=== PATIENT | female | born 1990 | race Caucasian/White ===

== ENCOUNTER 2017-09-03 00:20 | Inpatient (IN) | payer OTHER, SELFPAY ==
[2017-09-03 01:25] LABS: Hematocrit 33.2 % (37-47); Mean Corp Hgb Conc 33.1 g/gl (32-36); Mean Corpuscular Hgb 30.6 pg (27.0-32.0); Mean Corpuscular Volume 92.2 fL (81-99); Mean Platelet Vol. 10.7 fl (6.2-12.0); Platelet Count 282 K/mm3 (150-450); RBC Distribution Width CV 12.3 % (11.6-14.6); RBC Distribution Width SD 40.3 fl (35.1-43.9); White Blood Count 13.9 K/mm3 (4.4-11.0)
[2017-09-03 01:31] LABS: Scan Indicated on CBC? Y/N NO
[2017-09-03 01:32] VITALS: BMI 35.2
[2017-09-03] MEDS: Betamethasone/Betamethasone 30 MG/5 ML Vial 12 MG IM (01:56)
[2017-09-03 02:27] LABS: Group B Strep DNA By PCR POSITIVE (Negative); Probe Check PASS
[2017-09-03] MEDS: Lactated Ringers 1,000 ML 50 ML IV ×4 (06:00→13:38)
[2017-09-03] MEDS: fentaNYL-bupivacaine (epidural) 100 ML BAG EPIDURAL ×3 (07:00→15:50)
[2017-09-03] MEDS: Levothyroxine 50 MCG Tablet PO (09:19)
[2017-09-03] MEDS: Oxytocin 30 units/NS 500 ml 30 UNITS/500 ML IV.SOLN IV (09:30)
[2017-09-03] MEDS: Cefazolin 1 GM/50 ML BAG IV (11:55)
[2017-09-03] MEDS: Oxytocin 30 units/NS 500 ml 30 UNITS/500 ML IV.SOLN 334 UNITS IV (17:57)
--- NOTE | 2017-09-03 18:12 | PCM.HP.OB ---
History Date of Admission: 09/03/17 Final DINORA: 09/29/17 Final DINORA Source: US <20 weeks Gestational age: 36 Weeks and 2 Days History of this : This is a 27 year-old, 1 para 0 at 36-2/7 weeks gestation with EDC of 09/29/2014 confirmed by early ultrasound presents complaining of spontaneous rupture of membranes. She had rupture membranes with clear fluid at approximately 11:15 PM on 09/02/2017. Her contractions started after this. She had no gross vaginal bleeding. Her has been uncomplicated to date. She conceived this using clomiphene citrate. Her past medical history significant for Almaz's thyroiditis and she had folliculitis in the groin area treated with Keflex earlier in the . Allergies amoxicillin [From Augmentin] Allergy (Verified 09/03/17 01:25) Other clavulanic acid [From Augmentin] Allergy (Verified 09/03/17 01:25) Other Sulfa (Sulfonamide Antibiotics) Allergy (Verified 09/03/17 01:25) Hives Home Medications: Home Medications Calcium Carbonate [Tums] 750 mg PO DAILY PRN 09/03/17 Levothyroxine [Synthroid] 50 mcg PO DAILY 09/03/17 Vits [Prenatabs FA] 1 tablet PO DAILY 09/03/17 Smoking Status: Never smoker Alcohol: None Number of Fetus(es): 1 History Past Pregnancies: Past Pregnancies Delivery Date Name GA/Weeks Outcome Route Weight Infant Gender Labor Length Anesthesia Delivery Location Provider FOB Expected Delivery Method: Spontaneous Vaginal Review of Systems Constitutional: Denies: Anorexia, Chills, Fever Eyes: Denies: Blurred vision Cardiovascular: Reports: Edema. 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 Estimated weight is less than 4500 g pelvis is clinically adequate to expect vaginal delivery. Has received group B strep prophylaxis. Will augment labor with Pitocin. May have epidural or nitrous oxide or Nubain as needed for pain control.
--- NOTE | 2017-09-03 18:15 | HP.PCM_ITS ---
History Date of Admission: 09/03/17 Final DINORA: 09/29/17 Final DINORA Source: US <20 weeks Gestational age: 36 Weeks and 2 Days History of this : This is a 27 year-old, 1 para 0 at 36-2/7 weeks gestation with EDC of confirmed by early ultrasound presents complaining of spontaneous rupture of membranes. She had rupture membranes with clear fluid at approximately 11:15 PM on 09/02/2017. Her contractions started after this. She had no gross vaginal bleeding. Her has been uncomplicated to date. She conceived this using clomiphene citrate. Her past medical history significant for Almaz's thyroiditis and she had folliculitis in the groin area treated with Keflex earlier in the . Allergies amoxicillin [From Augmentin] Allergy (Verified 09/03/17 01:25) Other clavulanic acid [From Augmentin] Allergy (Verified 09/03/17 01:25) Other Sulfa (Sulfonamide Antibiotics) Allergy (Verified 09/03/17 01:25) Hives Home Medications: Home Medications Calcium Carbonate [Tums] 750 mg PO DAILY PRN 09/03/17 Levothyroxine [Synthroid] 50 mcg PO DAILY 09/03/17 Vits [Prenatabs FA] 1 tablet PO DAILY 09/03/17 Smoking Status: Never smoker Alcohol: None Number of Fetus(es): 1 History Past Pregnancies: Past Pregnancies Delivery Date Name GA/Weeks Outcome Route Weight Infant Gender Labor Length Anesthesia Delivery Location Provider FOB Expected Delivery Method: Spontaneous Vaginal Review of Systems Constitutional: Denies: Anorexia, Chills, Fever Eyes: Denies: Blurred vision Cardiovascular: Reports: Edema. 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 Estimated weight is less than 4500 g pelvis is clinically adequate to expect vaginal delivery. Has received group B strep prophylaxis. Will augment labor with Pitocin. May have epidural or nitrous oxide or Nubain as needed for pain control.
--- NOTE | 2017-09-03 18:15 | PCM.OB.VAG ---
Vaginal Delivery Maternal Presentation: Active Labor, Spontaneous Rupture of Membranes Amniotic Membrane Rupture Type: Spontaneous at home Amniotic Fluid Description: Clear Final DINORA: 09/29/17 Final DINORA Source: US <20 weeks Gestational age: 36 Weeks and 2 Days Date of Procedure: 09/03/17 Pre-Operative Diagnosis: labor Post-Operative Diagnosis: same Surgery/ Procedure Performed: Spontaneous Vaginal Delivery Type of Anesthesia: Epidural Description of Procedure: A vigorous male was delivered BIANKA over very small first-degree perineal laceration.. The remainder the infant was delivered with maternal pushing and gentle traction only in less than 15 seconds. The Pitocin infusion was initiated for active management of the third stage. The cord was clamped and cut after 1 minute. The infant was attended to by the waiting nursing staff. The placenta was delivered spontaneously and intact. The cervix and vagina were intact. The small superficial 1 cm abrasion was not repaired. Sponge and needle counts were correct. A vaginal sweep was completed by me. Presentation: BIANKA Placental Delivery Description: Spontaneous Placenta Disposition: [facility] Cord Vessel Description: 3 Vessels Cord Entanglement: None Drain: Cheatham to straight drain Estimated Blood Loss: 300cc A gender: Male (1 minute): 8 (5 minute): 9 Laceration: 1st degree Medications given after delivery: IV Pitocin Complications: None
[2017-09-03] MEDS: Oxytocin 30 units/NS 500 ml 30 UNITS/500 ML IV.SOLN 167 UNITS IV (18:30)
[2017-09-03 20:00] VITALS: BP 118/65; PULSE 85; RESP 18; TEMP 37
[2017-09-03] MEDS: Nystatin Ointment 1 APPLIC TOPICAL (21:58)
[2017-09-04] VITALS: BP 114/65; PULSE 80; RESP 18; TEMP 37.1
[2017-09-04] MEDS: Naproxen 250 MG Tablet PO ×2 (02:38→13:31)
[2017-09-04 04:30] VITALS: BP 103/60; PULSE 79; RESP 16; TEMP 37.1
[2017-09-04 08:50] VITALS: BP 116/71; PULSE 77; RESP 16; TEMP 36.9; O2SAT 97
--- NOTE | 2017-09-04 09:03 | PCM.PN.OB ---
Subjective: Pain minimal/. Average lochia - Physical Exam General: Alert, Cooperative, No apparent distress Vital Signs Temp Pulse Resp BP 98.7 F 79 16 103/60 09/04/17 04:30 09/04/17 04:30 09/04/17 04:30 09/04/17 04:30 Weight: 96.162 kg Body Mass Index (BMI) 35.2 Intake and Output for Last 24 Hours 09/02/17 09/03/17 09/04/17 23:59 23:59 23:59 Intake Total 4278 / 4278 Output Total 5000 / 5000 450 / 450 Balance -722 / -722 -450 / -450 Medical Necessity - Tobacco Use Smoking Status: Never smoker Assessment/Plan PPD#1 s/p 36 week delivery working on likely d/c home tomorrow
[2017-09-04] MEDS: Nystatin Ointment 1 APPLIC TOPICAL ×2 (11:02→23:00)
[2017-09-04] MEDS: Senna/Docusate Sodium 1 Tablet PO (11:02)
[2017-09-04 11:55] VITALS: BP 112/60; PULSE 90; RESP 18; TEMP 36.7; O2SAT 98
[2017-09-04 15:55] VITALS: BP 118/70; PULSE 95; RESP 16; TEMP 37
[2017-09-04 20:40] VITALS: BP 122/80; PULSE 90; RESP 18; TEMP 37
[2017-09-05 02:40] VITALS: BP 118/66; PULSE 68; RESP 18; TEMP 36.5
[2017-09-05] MEDS: Levothyroxine 50 MCG Tablet PO (06:00)
[2017-09-05 08:00] VITALS: BP 114/64; PULSE 82; RESP 18; TEMP 36.7
[2017-09-05] MEDS: Senna/Docusate Sodium 1 Tablet PO (08:32)
[2017-09-05] MEDS: Nystatin Ointment 1 APPLIC TOPICAL (08:41)
--- NOTE | 2017-09-05 10:52 | PCM.PN.OB ---
Subjective: pain well cotnrolled, average lochia, No N/V - Physical Exam General: Alert, Cooperative, No apparent distress Abdomen: Soft, Non Tender, Non-Distended Vital Signs Temp Pulse Resp BP Pulse Ox 97.7 F L 68 18 118/66 98 09/05/17 02:40 09/05/17 02:40 09/05/17 02:40 09/05/17 02:40 09/04/17 11:55 Oxygen Delivery Method Room Air Weight: 96.162 kg Body Mass Index (BMI) 35.2 Intake and Output for Last 24 Hours 09/03/17 09/04/17 09/05/17 23:59 23:59 23:59 Intake Total 4278 / 4278 Output Total 5000 / 5000 450 / 450 Balance -722 / -722 -450 / -450 Medical Necessity - Tobacco Use Smoking Status: Never smoker Assessment/Plan PPD#2 s/p 36 week delivery working on d/c home
--- NOTE | 2017-09-05 10:54 | DCINST_ITS ---
Discharge Diet: No Restrictions Discharge Activity: Return to Normal Activity, May not drive while taking narcotic pain medications., May Shower May resume sexual activity in: 4-6 weeks Additional Activity Instructions:: Nothing in the vagina for 4-6 weeks. You may return to work/school in 6 weeks. Call your doctor if your incision/area has: Continuous Slow Oozing, Sudden Increased Bleeding, Increased Pain/ Swelling, Increased Redness, Foul Smelling Discharge Additional Instructions: If you experience any of the following, contact your healthcare provider. * Bleeding that soaks a pad every hour for 2 hours * Fever 100.4 or higher * Unrelieved incision or abdominal pain * Swelling, redness, discharge or bleeding from your incision or episiotomy site * Your incision begins to separate * Problems urinating (including inability to urinate or burning while urinating) . * Visual changes * Severe headache * Flu-like symptoms * Pain or redness in one of both of your breasts * Pain, warmth, tenderness or swelling in your legs, especially the calf area * Frequent nausea and vomiting * Symptoms of depression or anxiety If you experience any of the following, call 911 or go to the nearest Emergency Room. * Chest pain * Problems breathing * Seizure activity * Partial or complete paralysis of a body part, slurred speech, weakness or drooping of the face, or a sudden inability to walk or hold your balance Allergies/Adverse Reactions: Allergies amoxicillin [From Augmentin] Allergy (Verified 09/03/17 01:25) Other clavulanic acid [From Augmentin] Allergy (Verified 09/03/17 01:25) Other Sulfa (Sulfonamide Antibiotics) Allergy (Verified 09/03/17 01:25) Hives Medications to take at Discharge Calcium Carbonate [Tums] 750 mg PO DAILY PRN 09/03/17 Levothyroxine [Synthroid] 50 mcg PO DAILY 09/03/17 Vits [Prenatabs FA ] 1 tablet PO DAILY 09/03/17 Please Follow Up With: Amisha Benavides MD - [phone] When: Call to make an appointment with your provider's office in 6 weeks. If you had elevated Blood Pressure or 4th degree laceration you will need to be seen in 2 weeks.
--- NOTE | 2017-09-12 11:09 | NURSING ---
Follow up phone call completed: Patient states she is doing very well Her vaginal bleeding is minimal, No symptoms to report, She has had to take baby back to dr brit krishnan for jaundice, is pumping and fortifying milk for weight gain, denies need for appointment. Was very satisfied with her care and would like to recognize Pinky for all her help during delivery.
== END 2017-09-05 12:00 | disposition home or self-care (01) | DRG 775 ==
PROVIDERS: Admitting Provider Obstetrics & Gynecology; Visit Provider Obstetrics & Gynecology
DX: O42.013 Preterm premature rupture of membranes, onset of labor within 24 hours of rupture, third trimester (principal); O60.14X0 Preterm labor third trimester with preterm delivery third trimester, not applicable or unspecified; O70.0 First degree perineal laceration during delivery; O99.284 Endocrine, nutritional and metabolic diseases complicating childbirth; E06.3 Autoimmune thyroiditis; O99.820 Streptococcus B carrier state complicating pregnancy; Z3A.36 36 weeks gestation of pregnancy; Z37.0 Single live birth
CPT/HCPCS: 59025; 59050; 85027; 86850; 86900; 87653; 99218; J7120; A4216; G0378; J0702

== ENCOUNTER 2021-06-23 10:20 | Inpatient (IN) | payer OTHER, SELFPAY ==
[2021-06-23] VITALS (42 sets, daily range): BP systolic 103–150; BP diastolic 56–91; PULSE 69–103; TEMP 36.1–36.7; O2SAT 98–100; BMI 39.2
[2021-06-23] MEDS: Lactated Ringers 1,000 ML 50 ML IV (11:00)
[2021-06-23 11:13] LABS: Absolute Lymphocyte Count 1.51 X10^3/uL (0.83-4.51); Absolute Neutrophil Count 6.9 X10^3/uL (2.0-7.7); Basophil# 0.02 X10^3/uL; Basophil% 0.2 % (0-1); Eosinophil# 0.06 X10^3/uL; Eosinophils% 0.7 % (0-5); Hematocrit 32.5 % (37-47); Hemoglobin 10.5 g/dL (12.0-15.0); Lymphocyte # 1.51 X10^3/ul (0.83-4.51); Lymphocyte % 16.6 % (19-41); Mean Corp Hgb Conc 32.3 g/dL (32-36); Mean Corpuscular Hgb 27.3 pg (27.0-32.0); Mean Corpuscular Volume 84.6 fL (81-99); Monocyte# 0.46 X10^3/uL; Monocyte% 5.1 % (0-10); NRBC Flagged by Analyzer 0 % (0-5); Neutrophil # 6.89 X10^3/uL (2.7-7.7); Platelet Count 257 K/mm3 (150-450); RBC Distribution Width CV 14.3 % (11.6-14.6); RBC Distribution Width SD 43.6 fl (35.1-43.9); Red Blood Count 3.84 M/mm3 (4.2-5.4); White Blood Count 9.1 K/mm3 (4.4-11.0)
[2021-06-23] MEDS: Oxytocin 30 units/NS 500 ml 30 UNITS/500 ML IV.SOLN IV (11:55)
[2021-06-23] MEDS: Lactated Ringers 500 ML 999 ML IV (12:02)
[2021-06-23] MEDS: fentaNYL-bupivacaine (epidural) 100 ML BAG EPIDURAL ×2 (12:54→17:03)
--- NOTE | 2021-06-23 13:16 | PN.OBGYN_ITS ---
Subjective Subjective Patient comfortable with epidural Objective Data Objective Data Vital Signs: Vital Signs Temp Pulse BP Pulse Ox 97.3 F L 102 H 103/70 100 06/23/21 12:05 06/23/21 13:13 06/23/21 13:13 06/23/21 13:06 Weight: 236 lb Body Mass Index (BMI) 39.2 Intake & Output: Intake and Output for Last 24 Hours 06/21/21 06/22/21 06/23/21 23:59 23:59 23:59 Intake Total 552.5 / 552.5 Balance 552.5 / 552.5 Lab / Micro Data Result Diagrams: 06/23/21 11:00 Labs: Laboratory Results - last 24 hr 06/23/21 11:00: WBC 9.1, RBC 3.84 L, Hgb 10.5 L, Hct 32.5 L, MCV 84.6, MCH 27.3, MCHC 32.3, RDW Std Deviation 43.6, RDW Coeff of [place] 14.3, Plt Count 257, MPV 11.0, Immature Gran % (Auto) 1.400 H, Neut % (Auto) 76.0 H, Lymph % (Auto) 16.6 L, [place] % (Auto) 5.1, Eos % (Auto) 0.7, Baso % (Auto) 0.2, Absolute Neuts (auto) 6.9, Absolute Lymphs (auto) 1.51, Nucleated RBC % 0 06/23/21 11:00: Blood Type A POSITIVE, Antibody Screen NEGATIVE Physical Exam Narrative: cvx - 4/70/-2. AROM clear fluid. IUPC & FSE placed. NST FHR Rate Baby A Baseline: 135 Variability:: Moderate Accelerations:: 15 x 15 Uterine Activity:: Irregular Assessment & Plan (1) 39 weeks gestation of : PLAN: Continue pitocin induction
[2021-06-23] MEDS: Lactated Ringers 1,000 ML 200 ML IV (17:03)
--- NOTE | 2021-06-23 17:39 | HP.PCM.OB_ITS ---
HPI - General General Date of Admission: 06/23/21 HPI Narrative ROBB SÁNCHEZ, is a 31 F who presents for induction for were history of in vitro fertilization . She denies any vaginal bleeding or leaking of fluid. She has had good movement. is comp been complicated to date by some heartburn, hypothyroidism estimated weight is LGA, and she has had some antepartum anemia. She is also had some dyspepsia during the . She has been on progesterone injections earlier in the because a history of delivery in the past. Maternal Data Information Final DINORA: 06/30/21 Gestational age: 39 0/7 [facility] Medical History (Updated 06/23/21 @ 16:[address] Amisha Benavides MD) 39 weeks gestation of Asthma Autoimmune disease History of pre-term labor Infertility Kidney disease macrosomia Thyroid disorder Home Medications Prenatabs FA 1 tab PO DAILY 09/03/17 [History Last Taken 09/02/17 20:30] L. acidophilus-L. rhamnosus [Probiotic] 2 cap PO DAILY 06/23/21 [History Last Taken 06/23/21] aspirin 81 mg PO DAILY 06/23/21 [History Last Taken Unknown] iron,iron asp gly-FA-mv,min38 1 tab PO DAILY 06/23/21 [History Last Taken Unknown] levothyroxine 88 mcg PO DAILY 06/23/21 [History Last Taken Unknown] magnesium 200 mg PO DAILY 06/23/21 [History Last Taken Unknown] omeprazole 20 mg PO DAILY 06/23/21 [History Last Taken Unknown] Allergy/AdvReac Type Severity Reaction Status Date / Time amoxicillin [From Augmentin] Allergy Other Verified 06/23/21 10:29 clavulanic acid Allergy Other Verified 06/23/21 10:29 [From Augmentin] Sulfa (Sulfonamide Allergy Hives Verified 06/23/21 10:29 Antibiotics) Social History Smoking Status: Former smoker History Elective abortions Hx Para 1 Spontaneous abortions Hx # Term Pregnancies Ectopic pregnancies Hx # Pregnancies Multiple births # of living children ROS Constitutional Constitutional: Denies fatigue, fever(s) or malaise Eyes Eyes: Denies change in vision ENT HEENT: Denies dizziness or headache(s) Cardiovascular Cardiovascular: Denies chest pain, dyspnea or lightheadedness Respiratory/Chest Respiratory/Chest: Denies cough or dyspnea Gastrointestinal Gastrointestinal: Denies change in bowel habits Genitourinary Genitourinary: Denies burning urination or genital lesions Integumentary Integumentary: Denies rash Neurologic Neurologic: Denies confusion, dizziness, headache(s), numbness or weakness Vital Signs Vital Signs Vital Signs: 06/23/21 10:50 06/23/21 10:53 06/23/21 12:00 Temperature 97.6 F L Temperature Source Temporal Pulse Rate 92 91 91 Blood Pressure 143/83 H 127/84 H BP Systolic 143 127 BP Diastolic 83 84 Pulse Ox 98 06/23/21 12:05 06/23/21 12:06 06/23/21 12:41 Temperature 97.3 F L Temperature Source Temporal Pulse Rate 81 81 Blood Pressure BP Systolic BP Diastolic Pulse Ox 99 99 06/23/21 12:44 06/23/21 12:46 06/23/21 12:47 Temperature Temperature Source Pulse Rate 86 97 Blood Pressure 131/89 H 133/91 H BP Systolic 131 133 BP Diastolic 89 91 Pulse Ox 99 06/23/21 12:51 06/23/21 12:53 06/23/21 12:56 Temperature Temperature Source Pulse Rate 88 94 89 Blood Pressure 112/59 L BP Systolic 112 BP Diastolic 59 Pulse Ox 98 100 06/23/21 12:58 06/23/21 13:01 06/23/21 13:03 Temperature Temperature Source Pulse Rate 96 89 92 Blood Pressure 112/59 L 114/61 BP Systolic 112 114 BP Diastolic 59 61 Pulse Ox 100 06/23/21 13:06 06/23/21 13:08 06/23/21 13:13 Temperature Temperature Source Pulse Rate 82 81 102 H Blood Pressure 106/56 L 103/70 BP Systolic 106 103 BP Diastolic 56 70 Pulse Ox 100 06/23/21 13:19 06/23/21 13:56 06/23/21 13:58 Temperature 97.0 F L Temperature Source Temporal Pulse Rate 103 H 85 80 Blood Pressure 111/68 128/81 H BP Systolic 111 128 BP Diastolic 68 81 Pulse Ox 100 06/23/21 14:57 06/23/21 14:58 06/23/21 15:53 Temperature 97.5 F L Temperature Source Temporal Pulse Rate 72 69 Blood Pressure 120/61 129/66 H BP Systolic 120 129 BP Diastolic 61 66 Pulse Ox 06/23/21 15:54 06/23/21 17:33 Temperature 98.0 F 97.5 F L Temperature Source Temporal Temporal Pulse Rate 73 85 Blood Pressure 131/86 H BP Systolic 131 BP Diastolic 86 Pulse Ox 100 Weight Weight: 107.048 kg Body Mass Index (BMI) 39.2 Physical Exam Const alert and no apparent distress General Appearance: cooperative HEENT normocephalic Resp normal respiratory effort Cardio regular rate GI soft to palpation GI Narrative: gravid, nontender, appropriate for gestational age Extremity no calf tenderness General Extremity: edema Skin no wounds Rashes: No rashes noted Psych activity/motor behavior normal Labs Labs Labs: Blood Type A POSITIVE Antibody Screen NEGATIVE Hct 32.5 % (37-47) L Hgb 10.5 g/dL (12.0-15.0) L Group B Strep DNA POSITIVE (Negative) H Rhogam given: No Assessment & Plan (1) BMI 39.0-39.9,adult: (2) Maternal obesity syndrome in third trimester: (3) LGA (large for gestational age) fetus affecting mother, antepartum: (4) resulting from assisted reproductive technology in third trimester: (5) 39 weeks gestation of : PLAN: First benefits and alternatives to 39-week induction were discussed with the patient, questions were answered to her satisfaction she desires to proceed. Estimated weight is less than 5000 g clinically and by ultrasound and pelvis is clinically adequate to expect vaginal delivery. May have epidural as needed for pain control. Plan Pitocin artificial rupture membranes induction of labor.
[2021-06-23] MEDS: Oxytocin 30 units/NS 500 ml 30 UNITS/500 ML IV.SOLN 334 UNITS IV (18:09)
--- NOTE | 2021-06-23 18:16 | OP.PCM_ITS ---
Assessment & Plan (1) BMI 39.0-39.9,adult: (2) Maternal obesity syndrome in third trimester: (3) LGA (large for gestational age) fetus affecting mother, antepartum: (4) resulting from assisted reproductive technology in third trimester: (5) 39 weeks gestation of : (6) (spontaneous vaginal delivery): Maternal Data Information Final DINORA: 06/30/21 Gestational age: 39 Vaginal Delivery Maternal Presentation Maternal Presentation: Medically Indicated Induction Type of Induction: Pitocin and Amniotomy Operative Information Date of Procedure: 06/23/21 Pre-Operative Diagnosis: labor Post-Operative Diagnosis: same Surgery / Procedure Performed: Spontaneous Vaginal Delivery Type of Anesthesia: Epidural Special Medications: none Drain: [place]atham to straight drain Estimated Blood Loss: 400 Time of Delivery: 18:07 Findings Description of Procedure: A vigorous male infant was delivered BIANKA over an intact perineum. A loose nuchal cord x2 was easily reduced. The remainder the did not deliver easily. I attempted to deliver the anterior and the posterior shoulder with gentle traction maternal pushing. The patient's legs were then placed in modified Mio position. The anterior shoulder did not deliver still. Suprapubic pressure was then given and with maternal pushing efforts the remainder the delivered in less than 60 seconds. The cord was quickly clamped and cut so the baby could be handed off to the waiting nurs ing staff and product examiner. The Pitocin infusion was initiated for active management of the third stage. . The placenta was delivered spontaneously and intact. The cervix and vagina were intact. Sponge and needle counts were correct. A vaginal sweep was completed by me. Presentation: BIANKA and NU Amniotic Membrane Rupture Type: Artificial Amniotic Fluid Description: Clear Placental Delivery Description: Spontaneous Placenta Disposition: [facility] Cord Vessel Description: 3 Vessels Cord Entanglement: Around neck x 2, loose Nuchal Cord Compression: Without compression Cord Gases: ABG and VBG Infant A Gender: Male (1 minute): 7 (5 minute): 9 Delayed Cord Clamping: No Post Vaginal Delivery Medications Given After Delivery: IV Pitocin Episiotomy Description: None Laceration: None Admit VTE Documentation VTE Present on Admission: No VTE Mechan Device Prophylaxis: None VTE Pharm Prophylaxis Ordered: No Reason Prophylaxis Not Ordered: Procedure Not Indicated
[2021-06-23] MEDS: Naproxen 500 MG Tablet PO (23:12)
[2021-06-24 00:15] VITALS: BP 142/90; PULSE 93; RESP 15; TEMP 36.7
[2021-06-24] MEDS: Acetaminophen 500 MG Tablet 1000 MG PO ×2 (04:14→20:03)
[2021-06-24 04:21] VITALS: BP 139/82; PULSE 83; RESP 15; TEMP 36.5
[2021-06-24] MEDS: Levothyroxine 88 MCG Tablet PO (06:29)
[2021-06-24 08:20] VITALS: BP 145/92; PULSE 83; RESP 16; TEMP 36.7
--- NOTE | 2021-06-24 09:00 | PCM.PN.OB ---
Subjective Subjective Average lochia. Some cramping. No other complaints today. Objective Data Objective Data Vital Signs: Vital Signs Temp Pulse Resp BP Pulse Ox 98.1 F 83 16 145/92 H 99 06/24/21 08:20 06/24/21 08:20 06/24/21 08:20 06/24/21 08:20 06/23/21 19:34 Oxygen Delivery Method Room Air Weight: 107.048 kg Body Mass Index (BMI) 39.2 Intake & Output: Intake and Output for Last 24 Hours 06/22/21 06/23/21 06/24/21 23:59 23:59 23:59 Intake Total 2189.16 / 2189.16 Output Total 1380 / 1380 200 / 200 Balance 809.16 / 809.16 -200 / -200 Lab / Micro Data Result Diagrams: 06/23/21 11:00 Labs: Laboratory Results - last 24 hr 06/23/21 11:00: WBC 9.1, RBC 3.84 L, Hgb 10.5 L, Hct 32.5 L, MCV 84.6, MCH 27.3, MCHC 32.3, RDW Std Deviation 43.6, RDW Coeff of [place] 14.3, Plt Count 257, MPV 11.0, Immature Gran % (Auto) 1.400 H, Neut % (Auto) 76.0 H, Lymph % (Auto) 16.6 L, [place] % (Auto) 5.1, Eos % (Auto) 0.7, Baso % (Auto) 0.2, Absolute Neuts (auto) 6.9, Absolute Lymphs (auto) 1.51, Nucleated RBC % 0 06/23/21 11:00: Blood Type A POSITIVE, Antibody Screen NEGATIVE Physical Exam Const alert and no apparent distress Narrative: Fundus firm, below umbilicus. Assessment & Plan (1) (spontaneous vaginal delivery): PLAN: Post day #1. Patient and are doing well. is breast-feeding. Patient is tolerating regular diet. Average lochia. Pain well controlled. Likely discharge home tomorrow.
[2021-06-24] MEDS: Naproxen 500 MG Tablet PO ×2 (13:47→21:55)
[2021-06-24 13:52] VITALS: BP 130/70; PULSE 90; RESP 14; TEMP 36.8
[2021-06-24 17:45] VITALS: BP 126/78; PULSE 86; RESP 16; TEMP 37.1
[2021-06-24 20:05] VITALS: BP 134/79; PULSE 82; RESP 16; TEMP 36.8
[2021-06-25] MEDS: Acetaminophen 500 MG Tablet 1000 MG PO (03:09)
[2021-06-25 03:10] VITALS: BP 131/73; PULSE 72; RESP 16; TEMP 36.6
[2021-06-25] MEDS: Levothyroxine 88 MCG Tablet PO (06:57)
[2021-06-25 08:32] VITALS: BP 126/85; PULSE 74; RESP 16; TEMP 36.2
--- NOTE | 2021-06-25 10:14 | PCM.PN.OB ---
Subjective Subjective Pain well controlled. Average lochia. Objective Data Objective Data Vital Signs: Vital Signs Temp Pulse Resp BP Pulse Ox 97.2 F L 74 16 126/85 H 99 06/25/21 08:32 06/25/21 08:32 06/25/21 08:32 06/25/21 08:32 06/23/21 19:34 Oxygen Delivery Method Room Air Weight: 107.048 kg Body Mass Index (BMI) 39.2 Intake & Output: Intake and Output for Last 24 Hours 06/23/21 06/24/21 06/25/21 23:59 23:59 23:59 Intake Total 2189.16 / 2189.16 Output Total 1380 / 1380 200 / 200 Balance 809.16 / 809.16 -200 / -200 Lab / Micro Data Result Diagrams: 06/23/21 11:00 Physical Exam Const alert and no apparent distress Narrative: Fundus firm, below umbilicus. Assessment & Plan (1) (spontaneous vaginal delivery): PLAN: day #2 status post vaginal delivery. Patient and are doing well. Desires discharge home.
--- NOTE | 2021-06-25 10:14 | PCM.DC.SUM ---
Providers Date of Admission: 06/23/21 Reason For Visit: VAGINAL DELIVERY Diagnosis Discharge Diagnosis (1) (spontaneous vaginal delivery): Status: Acute Code(s): O80 - Encounter for full-term uncomplicated delivery Medications at Discharge Home Medications Prenatabs FA 1 tab PO DAILY 09/03/17 Probiotic 2 cap PO DAILY 06/23/21 iron,iron asp gly-FA-mv,min38 1 tab PO DAILY 06/23/21 levothyroxine 88 mcg PO DAILY 06/23/21 magnesium 200 mg PO DAILY 06/23/21 Hospital Course Summary of Care Provided Hospital Course: Patient was admitted on 06/23/2021 for induction of labor. She delivered on 06/23/2021 with a mild shoulder dystocia that lasted approximately 53 seconds. It was resolved with suprapubic pain pressure and modified Mio. By day #2 patient and were doing well and she desires discharge home. Weight / BMI Weight Weight: 107.048 kg Body Mass Index (BMI) 39.2 ABG / Lab / Microbiology Data Result Diagrams: 06/23/21 11:00 D/C Instructions May resume sexual activity in: 6 weeks Please Follow Up With: Amisha Benavides MD When: Follow up with our office in 1-2 and 6 weeks or as needed. [phone] Meaningful Use Info Meaningful Use Diagnoses (Choose all that apply): None applicable Discharge Plan Admission Admit Date/Time: 06/23/21 10:20 Primary Reason for Your Visit: Vaginal delivery Attending Provider: Amisha Benavides Discharge Orders/Prescriptions Prescriptions: Continued Prenatabs FA 1 TABLET tablet 1 tab PO DAILY RF: 0 levothyroxine 88 mcg Tablet 88 mcg PO DAILY RF: 0 magnesium 200 mg Tablet 200 mg PO DAILY RF: 0 iron,iron asp gly-FA-mv,min38 125 mg iron-25 mg iron-1 mg Tablet 1 tab PO DAILY RF: 0 Probiotic 15 billion cell Capsule 2 cap PO DAILY RF: 0 Discontinued omeprazole 20 mg Capsule,Delayed Release(Dr/Ec) 20 mg PO DAILY RF: 0 aspirin 81 mg Capsule 81 mg PO DAILY RF: 0 Disposition Disposition (needs filled in before D/C Order can be placed): Home, Self Care
[2021-06-25] MEDS: Naproxen 500 MG Tablet PO (10:41)
== END 2021-06-25 10:40 | disposition home or self-care (01) | DRG 807 ==
PROVIDERS: Admitting Provider Obstetrics & Gynecology; Visit Provider Obstetrics & Gynecology
DX: O66.0 Obstructed labor due to shoulder dystocia (principal); Z37.0 Single live birth; E03.9 Hypothyroidism, unspecified; O99.02 Anemia complicating childbirth; O36.63X0 Maternal care for excessive fetal growth, third trimester, not applicable or unspecified; O99.284 Endocrine, nutritional and metabolic diseases complicating childbirth; O26.03 Excessive weight gain in pregnancy, third trimester; O69.81X0 Labor and delivery complicated by cord around neck, without compression, not applicable or unspecified; Z3A.39 39 weeks gestation of pregnancy; Z79.82 Long term (current) use of aspirin; Z79.899 Other long term (current) drug therapy; Z87.891 Personal history of nicotine dependence
CPT/HCPCS: 59025; 59050; 85025; 86850; 86900; 86901; 99218; J7120; G0378

== ENCOUNTER 2023-09-19 01:56 | Inpatient (IN) | payer OTHER, SELFPAY ==
[2023-09-18] VITALS (15 sets, daily range): BP systolic 133; BP diastolic 80; PULSE 75–94; RESP 16; TEMP 36.4; O2SAT 98–100; BMI 37.9
--- NOTE | 2023-09-18 23:10 | OB.TRI.HP_ITS ---
HPI - General HPI Narrative ROBB SÁNCHEZ, is a 33 F at 34.2 weeks gestation who presents with decreased movement. Patient stated has felt very minimal movement today which is abnormal. She also reports feeling abdomen tighten up off and on. Denies any pain with tightening. Denies any loss of fluid or vaginal bleeding. complicated by obesity, IVF, and hypothyroidism. Patient has a history of delivery with first child and shoulder dystocia with last delivery. Maternal Data Information DINORA Calculator Estimated Delivery Date Method Current WG Current Estimate 10/28/23 Manual 34w 3d PFSH PFS Medical History (Updated 09/18/23 @ 23:47 by Rita Martinez CNM) (spontaneous vaginal delivery) Maternal obesity syndrome in third trimester LGA (large for gestational age) fetus affecting mother, antepartum resulting from assisted reproductive technology in third trimester History of pre-term labor macrosomia Infertility Asthma Thyroid disorder Kidney disease Autoimmune disease Home Medications ?Medication ?Instructions ?Recorded ?Last Taken ?Type vits,calcium no.78-iron 1 tab PO DAILY supplement 09/03/17 09/02/17 20:30 History fumarate-folic acid 29 mg-1 mg tablet (Prenatabs FA) Lactobacillus acidophilus and 2 cap PO DAILY Check with primary 06/23/21 06/23/21 History rhamnosus 15 billion cell capsule doctor (Probiotic) iron 125 mg-iron 25 mg (asp 1 tab PO DAILY Check with primary 06/23/21 Unknown History gly)-folic acid 1 mg-mvit,min#38 doctor tablet levothyroxine 88 mcg tablet 88 mcg PO DAILY HYPOTHYROID 06/23/21 Unknown History cetirizine 10 mg tablet (24Hour 10 mg PO DAILY allergies 09/19/23 09/18/23 History Allergy) montelukast 10 mg tablet 10 mg PO DAILY 09/19/23 Unknown History (Singulair) Allergy/AdvReac Type Severity Reaction Status Date / Time clavulanic acid (From Allergy Other Verified 06/23/21 10:29 Augmentin) Sulfa (Sulfonamide Allergy Hives Verified 09/19/23 00:04 Antibiotics) amoxicillin (From Augmentin) AdvReac Other Verified 09/19/23 00:04 Social History Smoking Status: Former smoker History Elective abortions Hx Para 1 Spontaneous abortions Hx # Term Pregnancies Ectopic pregnancies Hx # Pregnancies Multiple births # of living children ROS Eyes Eyes: Denies blurry vision Cardiovascular Cardiovascular: Reports none; Denies chest pain at rest, chest pain with act ivity or dizziness Respiratory/Chest Respiratory/Chest: Denies cough or dyspnea Gastrointestinal Gastrointestinal: Reports none and other; Denies diarrhea or vomiting Genitourinary Genitourinary: Denies dysuria Musculoskeletal Musculoskeletal: Reports none Integumentary Integumentary: Reports none; Denies rash Neurologic Neurologic: Denies dizziness, headache(s) or other visual disturbances Psychiatric Psychiatric: Reports none Physical Exam Const alert, oriented x3 and no apparent distress General Appearance: cooperative Orientation / Consciousness: awake Exam Limitations: no limitations HEENT normocephalic Head and Scalp: normal to inspection Eyes General Eye: normal appearance of both eyes Neck full ROM and no lymphadenopathy Lymph Lymphatic: no lymphadenopathy noted Chest inspection of chest normal Resp normal respiratory effort, normal air movement and clear to auscultation bilaterally Effort and Inspection: able to speak in complete sentences and symmetric chest movement Cardio regular rate and regular rhythm GI normal to inspection, nondistended, normoactive bowel sounds Back/Spine normal ROM Extremity full ROM and no calf tenderness Skin no rashes or lesions noted General Skin Exam: no breakdown Neuro oriented x3 and CN's II-XII intact bilaterally Psych mental status grossly normal and thought process normal NST FHR Rate Baby A Baseline: 135-140 Variability:: Minimal and Moderate Accelerations:: None Uterine Activity:: some irritability Assessment & Plan (1) Decreased movement: (2) Uterine contractions: (3) Obesity affecting : (4) History of shoulder dystocia: (5) Autoimmune disease: COMMENT: Almaz's with thyroid goiter PLAN: Plan Patient has felt 2 movements since being placed on NST FHT's minimal - moderate variability- no accelerations Start IV and give 1000 cc liter bolus of LR Routine labs Collect and send urine Celestone 12 mg IM x 1 now and repeat in 24 hours Acoustic stimulation needed CE- closed / thick / high Dr. Morrison notified of assessment and involved with plan of care Will continue to monitor closely and update Dr. Morrison
[2023-09-18] MEDS: Lactated Ringers 1,000 ML 999 ML IV (23:16)
[2023-09-18 23:33] LABS: Absolute Lymphocyte Count 2.66 X10^3/uL (0.83-4.51); Basophil# 0.03 X10^3/uL; Basophil% 0.3 % (0-1); Eosinophil# 0.08 X10^3/uL; Eosinophils% 0.8 % (0-5); Hematocrit 37.1 % (37-47); Hemoglobin 11.6 g/dL (12.0-15.0); Lymphocyte # 2.66 X10^3/ul (0.83-4.51); Lymphocyte % 25.2 % (19-41); Mean Corp Hgb Conc 31.3 g/dL (32-36); Mean Corpuscular Hgb 27.1 pg (27.0-32.0); Mean Corpuscular Volume 86.7 fL (81-99); Mean Platelet Vol. 10.2 fl (6.2-12.0); Monocyte# 0.62 X10^3/uL; Monocyte% 5.9 % (0-10); NRBC Flagged by Analyzer 0 % (0-5); Neutrophil # 7.03 X10^3/uL (2.7-7.7); Neutrophil % 66.7 % (47-70); Platelet Count 297 K/mm3 (150-450); RBC Distribution Width CV 16.1 % (11.6-14.6); RBC Distribution Width SD 50.7 fl (35.1-43.9); Red Blood Count 4.28 M/mm3 (4.2-5.4); White Blood Count 10.5 K/mm3 (4.4-11.0)
[2023-09-18 23:59] LABS: Mucous, Urine 0 SEEN /hpf (<or=2+); Red Blood Cells-Urine 0 SEEN /hpf (0-5); White Blood Cells 0 SEEN /hpf (0-5)
[2023-09-19] VITALS (52 sets, daily range): BP systolic 111–142; BP diastolic 34–83; PULSE 67–102; RESP 14–22; TEMP 36.5–36.9; O2SAT 97–100
[2023-09-19] MEDS: Lactated Ringers 1,000 ML 200 ML IV (00:07)
[2023-09-19] MEDS: Betamethasone/Betamethasone 30 MG/5 ML Vial 12 MG IM (00:41)
[2023-09-19 00:51] LABS: Color, Urine Yellow (Yellow); Glucose, Dipstick Normal (Normal); Ketone-Dipstick Negative (Negative); Leukocyte Esterase-Dipstick 500 /ul (Negative); Nitrite-Dipstick Negative (Negative); Occult Blood-Urine Negative /ul (Negative); Protein-Dipstick Negative (Negative); Urine Bilirubin Dipstick Negative (Negative); Urine Clarity Clear (Clear); Urine Urobilinogen Normal (Normal)
--- NOTE | 2023-09-19 01:20 | US_ITS ---
INDICATION: to evaluate wellbeing-decreased movements EXAMINATION: Ultrasound US Biophysical Profile W/O Nonst TECHNIQUE: Transabdominal pelvic ultrasound was performed. COMPARISON: None. Provided EGA: 34 weeks 3 days correlating with October 28, 2023 delivery date. FINDINGS: INTRAUTERINE GESTATION(s): Single. HEART MOTION is 137 bpm. AMNIOTIC FLUID INDEX (QUINTIN): 14.1, deepest vertical pocket 7.1 cm BIOPHYSICAL PROFILE (BPP): 4/8 -- Breathin/2. -- Movement: 0/2. -- Tone: 2/2. --QUINTIN: 2/2. PRESENTATION: Cephalic PLACENTA: Anterior fundal grade 1 placenta without evidence of abruption or previa.. CERVIX: The cervix is not well seen. Umbilical cord reported wrapped once around neck. US/Biophysical Prof W/O Non Stres IMPRESSION: Single live intrauterine with normal heart rate and current cephalic presentation. Abnormal QUINTIN of 4 out of 8 Umbilical cord reported wrapped once around neck. Patient physician provider notified of biophysical score by hat parts cutter machine. Electronically Signed: Stuart Regan MD at 5:56 EDT Reading Location ID and State: [facility] [place] Tel , Service support ,
[2023-09-19 01:32] LABS: Bacteria 1+ /hpf (None Seen); Squamous Epithelial Cells - UA 5-10 SEEN /hpf (5-10)
[2023-09-19] MEDS: Dextrose 5%-Lactated Ringers 1,000 ML 999 ML IV (02:00)
[2023-09-19] MEDS: Acetaminophen 500 MG Tablet PO (03:01)
[2023-09-19] MEDS: Sodium Citrate/Citric Acid 30 ML UDC PO (03:02)
[2023-09-19] MEDS: Cefazolin 2 GM in 0.9% Normal Saline (100mL Bag) 100 ML IV (03:17)
--- NOTE | 2023-09-19 04:13 | OP.PCM_ITS ---
Maternal Data Information DINORA Calculator Estimated Delivery Date Method Current WG Current Estimate 10/28/23 Manual 34w 3d Details Operative Information Date of Procedure: 09/19/23 Pre-Operative Diagnosis: 34 weeks gestation, Non reassuring status, BPP 4/8, Cat 2 FHR Post-Operative Diagnosis: same, live male Indications Narrative: Patient presented to labor and delivery complaining of decreased movement. heart rate tracing was category 2 decision for official biophysical pr ofile , n.p.o. status attempt D5LR bolus after previous fluid resuscitation unsuccessful for improvement in status. Decision for primary section. pt received one dose of celestone. BPP was 4/8- (no breathing or movement) Classification: RAVEN Procedure Type: low transverse Type of Anesthesia: Spinal Special Medications: hemoblast Antibiotic Given: Ancef 2 grams IV x1 Drain: [place] to straight drain Estimated Blood Loss: 900 Fluids Replaced: 600 Procedure Start Time: 03:39 Procedure Stop Time: 04:09 Time of Delivery: 03:42 Findings Description of Procedure: After informed consent was obtained the patient was taken the operating room she was given spinal anesthesia. She was then placed in the supine position. She was prepped and draped in the normal sterile fashion. Anesthesia was found to be adequate. At this time a Pfannenstiel skin incision was made with a knife was carried down to the underlying layer of the fascia. The fascial incision was then extended laterally using opposing traction. Attention was then turned to the superior aspect of the fascial edge was grasped with 2 straight Montezuma clamps tented up and the rectus muscle dissected off sharply Rectus muscles were then in the midline bluntly and peritoneum was entered bluntly. Gentle opposing traction was placed. At this time the vesicouterine peritoneum was identified. Scalpel was used to make a uterine incision in a low transverse fashion. The uterus was then entered bluntly gentle opposing traction was placed to extend this incision. Membranes were ruptured clear. 's head was brought to the uterine incision was delivered atraumatically. Loose nuchal noted- reduced. Infant initially had tone and attempted to cry at , but then tone was lost and color was pale. cord was immediately clamped and cut infant was handed to the waiting nursery team. The Placenta was removed from the uterus. The uterus was then removed from the abdominal cavity. The uterus was cleared of all clots and debris using a lap. At this time the uterine incision was reapproximated using #1 Vicryl in a running locked fashion. Hemostasis was appreciated. Posterior cul-de-sac was then cleared of all clots and debris. Uterus was placed back in the abdominal cavity. Gutters were cleared of all clots and debris. Uterine incision was reevaluated and noted to be of good hemostasis. hemoblast placed over incision site. At this time the peritoneum was grasped with Kellys reapproximated using #2 Vicryl suture in a running fashion. hemoblast placed over rectus muscle. Fascia was then reapproximated using #1 Vicryl in a running fashion. Subcu layer was irrigated with NS, reapproximated with #2 0 plain gut suture in an interrupted fashion. Subcu layer was closed using 4-0 Monocryl in a subcu fashion. Dry sterile dressing was applied. Instrument lap needle count correct ?2. Anticipated normal postoperative course. Presentation: Positive for Vertex Amniotic Membrane Rupture Type: Artificial Amniotic Fluid Description: Clear Placental Delivery Description: Manual Removal Placenta Disposition: Sent with transport team Cord Vessel Description: 2 Vessels Cord Entanglement: Around neck x 1, loose Nuchal Cord Compression: With compression Cord Gases: ABG and VBG (attempted- not sure enough was collected for sample) A Gender: Male Delayed Cord Clamping: No Complications Risks of Surgery Discussed w/Patient: Bleeding, Anesthesia Risks, Infection and Injury to surrounding structure(s) including bowel and bladder Complications: none APGARS- not available- being resuscitated and will be transported to [facility]
[2023-09-19] MEDS: Oxytocin 15 Units/NS 250ml 15 UNITS/250 ML IV.SOLN 83 UNITS IV (04:25)
--- NOTE | 2023-09-19 04:33 | PCM.HP.OB ---
HPI - General General Date of Admission: 09/19/23 Date of Service: 09/19/23 HPI Narrative ROBB SÁNCHEZ, is a 33 F @ 34 weeks who presents c/o decreased FM since around lunch on 09/18/23 pt tried multiple times with no improvement. upon arrival Cat 2 fhr tracing. no vaginal bleeding, no leaking fluid, no fevers. Maternal Data Information DINORA Calculator Estimated Delivery Date Method Current WG Current Estimate 10/28/23 Manual 34w 3d PFSH PFSH Medical History (spontaneous vaginal delivery) Maternal obesity syndrome in third trimester LGA (large for gestational age) fetus affecting mother, antepartum resulting from assisted reproductive technology in third trimester History of pre-term labor macrosomia Infertility Asthma Thyroid disorder Kidney disease Autoimmune disease Home Medications ?Medication ?Instructions ?Recorded ?Last Taken ?Type vits,calcium no.78-iron 1 tab PO DAILY supplement 09/03/17 09/02/17 20:30 History fumarate-folic acid 29 mg-1 mg tablet (Prenatabs FA) Lactobacillus acidophilus and 2 cap PO DAILY Check with primary 06/23/21 06/23/21 History rhamnosus 15 billion cell capsule doctor (Probiotic) iron 125 mg-iron 25 mg (asp 1 tab PO DAILY Check with primary 06/23/21 Unknown History gly)-folic acid 1 mg-mvit,min#38 doctor tablet levothyroxine 88 mcg tablet 88 mcg PO DAILY HYPOTHYROID 06/23/21 Unknown History cetirizine 10 mg tablet (24Hour 10 mg PO DAILY allergies 09/19/23 09/18/23 History Allergy) montelukast 10 mg tablet 10 mg PO DAILY 09/19/23 Unknown History (Singulair) Allergy/AdvReac Type Severity Reaction Status Date / Time clavulanic acid (From Allergy Other Verified 06/23/21 10:29 Augmentin) Sulfa (Sulfonamide Allergy Hives Verified 09/19/23 00:04 Antibiotics) amoxicillin (From Augmentin) AdvReac Other Verified 09/19/23 00:04 Social History Smoking Status: Never smoker History Elective abortions Hx Para 2 Spontaneous abortions Hx # Term Pregnancies Ectopic pregnancies Hx # Pregnancies Multiple births # of living children NST FHR Rate Baby A Baseline: 140 Variability:: Minimal (at times moderate) Accelerations:: 10 x 10 (not appropriate for gestational age) Decelerations:: Late (occasional ) and Variable (occasional ) NST Reactive:: Non-Reactive FHR Category:: Category II Uterine Activity:: occasional Vital Signs Vital Signs Vital Signs: 09/18/23 22:16 09/18/23 22:16 09/18/23 22:16 Temperature Temperature Source Temporal Pulse Rate 93 Respiratory Rate Blood Pressure Blood Pressure Mean BP Systolic BP Diastolic Blood Pressure Source Blood Pressure Position Blood Pressure Location Pulse Ox 98 Oxygen Delivery Method 09/18/23 22:16 09/18/23 22:16 09/18/23 22:19 Temperature 97.6 F L Temperature Source Pulse Rate Respiratory Rate 16 Blood Pressure 133/80 H Blood Pressure Mean BP Systolic 133 BP Diastolic 80 Blood Pressure Source Blood Pressure Position Blood Pressure Location Pulse Ox Oxygen Delivery Method 09/18/23 22:19 09/18/23 22:49 09/18/23 22:49 Temperature Temperature Source Pulse Rate 86 94 Respiratory Rate Blood Pressure Blood Pressure Mean BP Systolic BP Diastolic Blood Pressure Source Blood Pressure Position Blood Pressure Location Pulse Ox 99 Oxygen Delivery Method 09/18/23 22:54 09/18/23 22:54 09/18/23 22:59 Temperature Temperature Source Pulse Rate 91 83 Respiratory Rate Blood Pressure Blood Pressure Mean BP Systolic BP Diastolic Blood Pressure Source Blood Pressure Position Blood Pressure Location Pulse Ox 99 Oxygen Delivery Method 09/18/23 22:59 09/18/23 23:04 09/18/23 23:04 Temperature Temperature Source Pulse Rate 86 Respiratory Rate Blood Pressure Blood Pressure Mean BP Systolic BP Diastolic Blood Pressure Source Blood Pressure Position Blood Pressure Location Pulse Ox 98 100 Oxygen Delivery Method 09/18/23 23:09 09/18/23 23:09 09/18/23 23:17 Temperature Temperature Source Pulse Rate 82 85 Respiratory Rate Blood Pressure Blood Pressure Mean BP Systolic BP Diastolic Blood Pressure Source Blood Pressure Position Blood Pressure Location Pulse Ox 98 Oxygen Delivery Method 09/18/23 23:17 09/18/23 23:22 09/18/23 23:22 Temperature Temperature Source Pulse Rate 92 Respiratory Rate Blood Pressure Blood Pressure Mean BP Systolic BP Diastolic Blood Pressure Source Blood Pressure Position Blood Pressure Location Pulse Ox 99 99 Oxygen Delivery Method 09/18/23 23:27 09/18/23 23:27 09/18/23 23:32 Temperature Temperature Source Pulse Rate 82 84 Respiratory Rate Blood Pressure Blood Pressure Mean BP Systolic BP Diastolic Blood Pressure Source Blood Pressure Position Blood Pressure Location Pulse Ox 99 Oxygen Delivery Method 09/18/23 23:32 09/18/23 23:37 09/18/23 23:37 Temperature Temperature Source Pulse Rate 85 Respiratory Rate Blood Pressure Blood Pressure Mean BP Systolic BP Diastolic Blood Pressure Source Blood Pressure Position Blood Pressure Location Pulse Ox 98 99 Oxygen Delivery Method 09/18/23 23:42 09/18/23 23:42 09/18/23 23:47 Temperature Temperature Source Pulse Rate 83 85 Respiratory Rate Blood Pressure Blood Pressure Mean BP Systolic BP Diastolic Blood Pressure Source Blood Pressure Position Blood Pressure Location Pulse Ox 98 Oxygen Delivery Method 09/18/23 23:47 09/18/23 23:57 09/18/23 23:57 Temperature Temperature Source Pulse Rate 75 Respiratory Rate Blood Pressure Blood Pressure Mean BP Systolic BP Diastolic Blood Pressure Source Blood Pressure Position Blood Pressure Location Pulse Ox 100 100 Oxygen Delivery Method 09/19/23 00:02 09/19/23 00:02 09/19/23 00:07 Temperature Temperature Source Pulse Rate 83 86 Respiratory Rate Blood Pressure Blood Pressure Mean BP Systolic BP Diastolic Blood Pressure Source Blood Pressure Position Blood Pressure Location Pulse Ox 100 Oxygen Delivery Method 09/19/23 00:07 09/19/23 00:12 09/19/23 00:12 Temperature Temperature Source Pulse Rate 80 Respiratory Rate Blood Pressure Blood Pressure Mean BP Systolic BP Diastolic Blood Pressure Source Blood Pressure Position Blood Pressure Location Pulse Ox 99 97 Oxygen Delivery Method 09/19/23 00:17 09/19/23 00:17 09/19/23 00:22 Temperature Temperature Source Pulse Rate 81 86 Respiratory Rate Blood Pressure Blood Pressure Mean BP Systolic BP Diastolic Blood Pressure Source Blood Pressure Position Blood Pressure Location Pulse Ox 97 Oxygen Delivery Method 09/19/23 00:22 09/19/23 00:27 09/19/23 00:27 Temperature Temperature Source Pulse Rate 89 Respiratory Rate Blood Pressure Blood Pressure Mean BP Systolic BP Diastolic Blood Pressure Source Blood Pressure Position Blood Pressure Location Pulse Ox 99 99 Oxygen Delivery Method 09/19/23 00:32 09/19/23 00:32 09/19/23 00:37 Temperature Temperature Source Pulse Rate 87 84 Respiratory Rate Blood Pressure Blood Pressure Mean BP Systolic BP Diastolic Blood Pressure Source Blood Pressure Position Blood Pressure Location Pulse Ox 100 Oxygen Delivery Method 09/19/23 00:37 09/19/23 00:42 09/19/23 00:42 Temperature Temperature Source Pulse Rate 89 Respiratory Rate Blood Pressure Blood Pressure Mean BP Systolic BP Diastolic Blood Pressure Source Blood Pressure Position Blood Pressure Location Pulse Ox 99 99 Oxygen Delivery Method 09/19/23 00:47 09/19/23 00:47 09/19/23 00:52 Temperature Temperature Source Pulse Rate 85 91 Respiratory Rate Blood Pressure Blood Pressure Mean BP Systolic BP Diastolic Blood Pressure Source Blood Pressure Position Blood Pressure Location Pulse Ox 99 Oxygen Delivery Method 09/19/23 00:52 09/19/23 00:57 09/19/23 00:57 Temperature Temperature Source Pulse Rate 87 Respiratory Rate Blood Pressure Blood Pressure Mean BP Systolic BP Diastolic Blood Pressure Source Blood Pressure Position Blood Pressure Location Pulse Ox 98 99 Oxygen Delivery Method 09/19/23 00:58 09/19/23 00:58 09/19/23 00:58 Temperature 97.8 F Temperature Source Temporal Pulse Rate Respiratory Rate 16 Blood Pressure Blood Pressure Mean BP Systolic BP Diastolic Blood Pressure Source Blood Pressure Position Blood Pressure Location Pulse Ox Oxygen Delivery Method 09/19/23 00:59 09/19/23 00:59 09/19/23 01:09 Temperature Temperature Source Pulse Rate 81 91 Respiratory Rate Blood Pressure 131/76 H Blood Pressure Mean BP Systolic 131 BP Diastolic 76 Blood Pressure Source Blood Pressure Position Blood Pressure Location Pulse Ox Oxygen Delivery Method 09/19/23 01:09 09/19/23 01:14 09/19/23 01:14 Temperature Temperature Source Pulse Rate 86 Respiratory Rate Blood Pressure Blood Pressure Mean BP Systolic BP Diastolic Blood Pressure Source Blood Pressure Position Blood Pressure Location Pulse Ox 100 100 Oxygen Delivery Method 09/19/23 01:19 09/19/23 01:19 09/19/23 01:24 Temperature Temperature Source Pulse Rate 87 84 Respiratory Rate Blood Pressure Blood Pressure Mean BP Systolic BP Diastolic Blood Pressure Source Blood Pressure Position Blood Pressure Location Pulse Ox 100 Oxygen Delivery Method 09/19/23 01:24 09/19/23 01:29 09/19/23 01:29 Temperature Temperature Source Pulse Rate 87 Respiratory Rate Blood Pressure Blood Pressure Mean BP Systolic BP Diastolic Blood Pressure Source Blood Pressure Position Blood Pressure Location Pulse Ox 100 100 Oxygen Delivery Method 09/19/23 01:34 09/19/23 01:34 09/19/23 01:39 Temperature Temperature Source Pulse Rate 94 86 Respiratory Rate Blood Pressure Blood Pressure Mean BP Systolic BP Diastolic Blood Pressure Source Blood Pressure Position Blood Pressure Location Pulse Ox 100 Oxygen Delivery Method 09/19/23 01:39 09/19/23 01:44 09/19/23 01:44 Temperature Temperature Source Pulse Rate 84 Respiratory Rate Blood Pressure Blood Pressure Mean BP Systolic BP Diastolic Blood Pressure Source Blood Pressure Position Blood Pressure Location Pulse Ox 100 99 Oxygen Delivery Method 09/19/23 01:49 09/19/23 01:49 09/19/23 01:54 Temperature Temperature Source Pulse Rate 90 89 Respiratory Rate Blood Pressure Blood Pressure Mean BP Systolic BP Diastolic Blood Pressure Source Blood Pressure Position Blood Pressure Location Pulse Ox 99 Oxygen Delivery Method 09/19/23 01:54 09/19/23 01:59 09/19/23 01:59 Temperature Temperature Source Pulse Rate 89 Respiratory Rate Blood Pressure Blood Pressure Mean BP Systolic BP Diastolic Blood Pressure Source Blood Pressure Position Blood Pressure Location Pulse Ox 99 98 Oxygen Delivery Method 09/19/23 02:10 09/19/23 02:10 09/19/23 02:15 Temperature Temperature Source Pulse Rate 79 82 Respiratory Rate Blood Pressure Blood Pressure Mean BP Systolic BP Diastolic Blood Pressure Source Blood Pressure Position Blood Pressure Location Pulse Ox 100 Oxygen Delivery Method 09/19/23 02:15 09/19/23 02:20 09/19/23 02:20 Temperature Temperature Source Pulse Rate 87 Respiratory Rate Blood Pressure Blood Pressure Mean BP Systolic BP Diastolic Blood Pressure Source Blood Pressure Position Blood Pressure Location Pulse Ox 100 100 Oxygen Delivery Method 09/19/23 02:25 09/19/23 02:25 09/19/23 02:30 Temperature Temperature Source Pulse Rate 84 88 Respiratory Rate Blood Pressure Blood Pressure Mean BP Systolic BP Diastolic Blood Pressure Source Blood Pressure Position Blood Pressure Location Pulse Ox 100 Oxygen Delivery Method 09/19/23 02:30 09/19/23 02:35 09/19/23 02:35 Temperature Temperature Source Pulse Rate 89 Respiratory Rate Blood Pressure Blood Pressure Mean BP Systolic BP Diastolic Blood Pressure Source Blood Pressure Position Blood Pressure Location Pulse Ox 100 99 Oxygen Delivery Method 09/19/23 02:40 09/19/23 02:40 09/19/23 02:45 Temperature Temperature Source Pulse Rate 92 101 H Respiratory Rate Blood Pressure Blood Pressure Mean BP Systolic BP Diastolic Blood Pressure Source Blood Pressure Position Blood Pressure Location Pulse Ox 100 Oxygen Delivery Method 09/19/23 02:45 09/19/23 02:50 09/19/23 02:50 Temperature Temperature Source Pulse Rate 97 Respiratory Rate Blood Pressure Blood Pressure Mean BP Systolic BP Diastolic Blood Pressure Source Blood Pressure Position Blood Pressure Location Pulse Ox 100 100 Oxygen Delivery Method 09/19/23 02:57 09/19/23 03:00 09/19/23 03:00 Temperature 98.3 F Temperature Source Temporal Pulse Rate 91 92 Respiratory Rate 18 Blood Pressure 142/83 H 142/83 H Blood Pressure Mean 102 BP Systolic 142 BP Diastolic 83 Blood Pressure Source Monitor Blood Pressure Position Semi-Fowlers Blood Pressure Location Left Arm Pulse Ox 100 Oxygen Delivery Method Room Air Weight Weight: 103.419 kg Body Mass Index (BMI) 37.9 Labs Labs Labs: Blood Type A POSITIVE Antibody Screen NEGATIVE Hct 37.1 % (37-47) Hgb 11.6 g/dL (12.0-15.0) L Syphilis Total Ab Pending Group B Strep DNA POSITIVE (Negative) H Rhogam given: No
[2023-09-19] MEDS: Ketorolac 30 MG/ML Syringe IV ×4 (05:09→23:19)
[2023-09-19] MEDS: Levothyroxine 88 MCG Tablet PO (06:20)
[2023-09-19] MEDS: Acetaminophen 500 MG Tablet 1000 MG PO ×3 (08:16→21:08)
[2023-09-19] MEDS: Lactated Ringers 1,000 ML 100 ML IV (08:17)
[2023-09-19 10:38] LABS: Syphilis Antibodies Non-reactive
[2023-09-19] MEDS: Senna/Docusate Sodium 1 Tablet PO (10:38)
[2023-09-19] MEDS: Montelukast 10 MG Tablet PO (10:38)
[2023-09-19] MEDS: Pantoprazole Sodium 20 MG Tablet PO (10:38)
[2023-09-19 14:58] LABS: Kleihauer-Betke POSITIVE
[2023-09-19] MEDS: 0.9% Saline Lock 10 ML Syringe IV ×2 (16:56→23:19)
[2023-09-19] MEDS: Enoxaparin 40 MG/0.4 ML Syringe SC (16:56)
[2023-09-20] MEDS: Acetaminophen 500 MG Tablet 1000 MG PO (03:14)
[2023-09-20 03:20] VITALS: BP 131/84; PULSE 79; RESP 16; TEMP 36.8; O2SAT 99
[2023-09-20] MEDS: Ibuprofen 600 MG Tablet PO (05:30)
[2023-09-20] MEDS: Levothyroxine 88 MCG Tablet PO (05:30)
[2023-09-20 06:31] LABS: Hemoglobin 10.1 g/dL (12.0-15.0); Mean Corp Hgb Conc 31.6 g/dL (32-36); Mean Corpuscular Hgb 27.6 pg (27.0-32.0); Mean Corpuscular Volume 87.4 fL (81-99); Mean Platelet Vol. 10.3 fl (6.2-12.0); Platelet Count 296 K/mm3 (150-450); RBC Distribution Width CV 16.3 % (11.6-14.6); RBC Distribution Width SD 51.2 fl (35.1-43.9); Red Blood Count 3.66 M/mm3 (4.2-5.4); White Blood Count 20.3 K/mm3 (4.4-11.0)
[2023-09-20 07:24] VITALS: BP 128/81; PULSE 72; RESP 16; TEMP 36.8; O2SAT 99
--- NOTE | 2023-09-20 08:13 | PCM.PN.OB ---
Subjective Subjective Doing well. Lochia minimal. Pin controlled. Baby in NICU. Pumping. Voiding and ambulating without difficulty Objective Data Objective Data Vital Signs: Vital Signs Temp Pulse Resp BP Pulse Ox O2 Del Method 98.3 F 72 16 128/81 H 99 Room Air 09/20/23 07:24 09/20/23 07:24 09/20/23 07:24 09/20/23 07:24 09/20/23 07:24 09/20/23 07:29 Oxygen Delivery Method Room Air Weight: 103.419 kg Body Mass Index (BMI) 37.9 Intake & Output: Intake and Output for Last 24 Hours 09/18/23 09/19/23 09/20/23 23:59 23:59 23:59 Intake Total 3040.99 / 3040.99 Output Total 1900 / 1900 Balance 1140.99 / 1140.99 Lab / Micro Data 09/20/23 06:19 Labs: Laboratory Results - last 24 hr 09/18/23 23:15: Syphilis Total Ab Non-reactive 09/19/23 05:25: Kleihauer-Christopher F Hgb POSITIVE H 09/20/23 06:19: WBC 20.3 H, RBC 3.66 L, Hgb 10.1 L, Hct 32.0 L, MCV 87.4, MCH 27.6, MCHC 31.6 L, RDW Std Deviation 51.2 H, RDW Coeff of [place] 16.3 H, Plt Count 296, MPV 10.3 Physical Exam Const alert General Appearance: cooperative GI GI Narrative: soft, moderate distention, fundus firm, appropriately tender. Abdominal bandage clean dry and intact Assessment & Plan (1) 34 weeks gestation of : (2) Delivery by emergency section: PLAN: Plan Discharge home
--- NOTE | 2023-09-20 08:16 | PCM.DC.SUM ---
Providers Date of Admission: 09/19/23 Date of Discharge: 09/20/23 Reason For Visit: PRIMARY C SECTION Diagnosis Discharge Diagnosis (1) 34 weeks gestation of : Status: Acute Code(s): Z3A.34 - 34 weeks gestation of (2) Delivery by emergency section: Status: Acute Code(s): O99.892 - Other specified diseases and conditions complicating childbirth Plan Discharge home Medications at Discharge Home Medications vits,calcium no.78-iron fumarate-folic acid 29 mg-1 mg tablet (Prenatabs FA) 1 tab PO DAILY supplement 09/03/17 Lactobacillus acidophilus and rhamnosus 15 billion cell capsule (Probiotic) 2 cap PO DAILY Check with primary doctor 06/23/21 iron 125 mg-iron 25 mg (asp gly)-folic acid 1 mg-mvit,min#38 tablet 1 tab PO DAILY Check with primary doctor 06/23/21 levothyroxine 88 mcg tablet 88 mcg PO DAILY HYPOTHYROID 06/23/21 cetirizine 10 mg tablet (24Hour Allergy) 10 mg PO DAILY allergies 09/19/23 montelukast 10 mg tablet (Singulair) 10 mg PO DAILY 09/19/23 Hospital Course Operations section Procedures None Summary of Care Provided Minutes Spent on Discharge: 20 Hospital Course: Presented with decreased movement. Delivered by urgent for NRFHR. BPP 4. Baby transferred to NICU. No complications. Pumping at discharge Physical Exam Const alert General Appearance: cooperative GI GI Narrative: soft, moderate distention, fundus firm, appropriately tender. Abdominal bandage clean dry and intact Weight / BMI Weight Weight: 103.419 kg Body Mass Index (BMI) 37.9 ABG / Lab / Microbiology Data 09/20/23 06:19 Laboratory: Laboratory Results - last 24 hr 09/18/23 23:15: Syphilis Total Ab Non-reactive 09/19/23 05:25: Kleihauer-Betke F Hgb POSITIVE H 09/20/23 06:19: WBC 20.3 H, RBC 3.66 L, Hgb 10.1 L, Hct 32.0 L, MCV 87.4, MCH 27.6, MCHC 31.6 L, RDW Std Deviation 51.2 H, RDW Coeff of [place] 16.3 H, Plt Count 296, MPV 10.3 D/C Instructions Discharge Diet: No restrictions May resume sexual activity in: 4-6 weeks Lifting Restrictions: 20 pounds Additional Activity Instructions: Nothing in the vagina for 4-6 weeks. You may return to work/school in 6 weeks. Call your doctor if your incision/area has: Continuous Slow Oozing, Sudden Increased Bleeding, Increased Pain/ Swelling, Increased Redness and Foul Smelling Discharge Call your doctor if you observe: Fever of 101 or Higher and Using more than 1 pad per hour (for 2 hours) Suture Line Care: Avoid Pulling/Pushing and Avoid Pinching/Bending Cleanse incision/area with: Keep Dressing Clean & Dry Please Follow Up With: Amisha Benvaides MD When: Call to make an appointment for an incision check in 1-2 [phone]. You will need a post check in 6 weeks. Meaningful Use Info Meaningful Use Meaningful Use Diagnoses (Choose all that apply): None applicable Ischemic Stroke Statin Dosing Therapy Reference: STATIN DOSE THERAPY REFERENCE: * Patients > 75 years receive moderate or high dose statin therapy. * Patients 75 years or YOUNGER should receive HIGH intensity statin dose unless contraindicated. You will be required to document reason for non-treatment if statin daily dose does not meet guidelines. HIGH DOSE STATIN THERAPY DAILY Atorvastatin > than or = to 40 mg Rosuvastatin > than or = to 20 mg Amlodipine + Atorvastatin > than or = to 2.5/40 mg Ezetimibe + Simvastatin 10/80 mg Simvastatin 80mg Discharge Plan Admission Admit Date/Time: 09/19/23 01:56 Primary Reason for Your Visit: delivery Attending Provider: Nidhi Sandhu Instructions Patient Instructions: After a Discharge Orders/Prescriptions Prescriptions: Continued Prenatabs FA 1 TABLET tablet 1 tab PO DAILY levothyroxine 88 mcg Tablet 88 mcg PO DAILY iron,iron asp gly-FA-mv,min38 125 mg iron-25 mg iron-1 mg Tablet 1 tab PO DAILY Probiotic 15 billion cell Capsule 2 cap PO DAILY Rx Instructions: CAPSULES cetirizine [24Hour Allergy] 10 mg tablet 10 mg PO DAILY montelukast [Singulair] 10 mg tablet 10 mg PO DAILY Disposition Disposition (needs filled in before D/C Order can be placed): Home, Self Care
== END 2023-09-20 09:10 | disposition home or self-care (01) | DRG 788 ==
LOC: WPOUT 02:21 → WP 02:21
PROVIDERS: Advanced Practice Midwife; Admitting Provider Obstetrics & Gynecology; Visit Provider Obstetrics & Gynecology
DX: O36.8130 Decreased fetal movements, third trimester, not applicable or unspecified (principal); O99.214 Obesity complicating childbirth; E04.9 Nontoxic goiter, unspecified; E06.3 Autoimmune thyroiditis; O99.284 Endocrine, nutritional and metabolic diseases complicating childbirth; Z37.0 Single live birth; Z3A.34 34 weeks gestation of pregnancy; O69.81X0 Labor and delivery complicated by cord around neck, without compression, not applicable or unspecified; Z79.890 Hormone replacement therapy; Z87.891 Personal history of nicotine dependence
CPT/HCPCS: 36415; 59025; 59050; 76819; 81001; 85025; 85027; 85460; 86780; 86850; 86900; 86901; 99221; J7120; A4216; G0378; J0702

== ENCOUNTER 2024-01-03 11:31 | Day surgery (SDC) | payer OTHER, SELFPAY ==
[2024-01-03] VITALS (12 sets, daily range): BP systolic 122–146; BP diastolic 69–93; PULSE 66–121; RESP 16–24; TEMP 36.3–36.7; O2SAT 93–99; BMI 35.9
--- NOTE | 2024-01-03 | FALS_PTH ---
PATIENT: ROBB SÁNCHEZ LOC: [facility] [place] U#:[id number] AGE/SX: 33/F ROOM: RE01/03/[address]: Dr. Nidhi Sandhu, MDDOB: 1990 BED: DIS: 01/03/2024 SPEC #: [id number] RECD: 01/03/24 17:40 STATUS: CRISTEL REGeraldo #: [id number] ANA PAULA: 01/03/24 00:[address]: Nidhi Sandhu DEPT: SURGICAL PATHOLOGY RECD BY: Nick Chaparro ENTERED: 01/06/24 08:19 SP TYPE: FALL TUBES OTHR DR: Dr. Olivia Montano MD Tissues: Fallopian tube Procedures: Surgery Specimen Level II HEADER OPERATION: Laparoscopic, salpingectomy PRE-OP DIAGNOSIS: Abnormal uterine bleeding, uterine fibroid, dysmenorrhea TISSUE SUBMITTED: Bilateral fallopian tubes MICROSCOPIC DIAGNOSIS Bilateral fallopian tubes, salpingectomy: Bilateral fallopian tubes, no pathologic diagnosis. A paratubal cyst. SJ: 01/07/2024 MICROSCOPIC DESCRIPTION Slides are reviewed. GROSS DESCRIPTION Received in fixative is one container labeled with the patient's name and designated bilateral fallopian tubes. The specimen consists of bilateral fallopian tubes including fimbrial ends. One of the fallopian tube measures 8.0cm in length and 0.5cm in diameter. Second fallopian tube is received in four pieces and measures 7.0 cm in length and 0.5 cm in diameter. The fallopian tubes are not identified as right or left. Sections reveal unremarkable cut surfaces. A detached paratubal cyst is also noted measuring 2.0 x 1.0 x 0.2cm. This appeared to be collapsed without any cyst content. Cyst ribeiro are thin. Product Ambassador sections are submitted in two cassettes as follows: 1- intact fallopian tube, 2- second fallopian tube received in multiple pieces and paratubal cyst. / SOPHIE: 01/06/2024 TC:4 CPT: 87437 x2
[2024-01-03 11:52] LABS: Hematocrit 39.6 % (37-47); Hemoglobin 12.4 g/dL (12.0-15.0); Mean Corp Hgb Conc 31.3 g/dL (32-36); Mean Platelet Vol. 9.8 fl (6.2-12.0); Platelet Count 322 K/mm3 (150-450); RBC Distribution Width SD 41.8 fl (35.1-43.9); Red Blood Count 4.77 M/mm3 (4.2-5.4)
--- NOTE | 2024-01-03 11:55 | PCM.OPRPT ---
Report of Operation Date of Procedure: 01/03/24 Pre-Operative Diagnosis: AUB, Fibroid uterus, dysmenorrhea Post-Operative Diagnosis: same Surgery/Procedure Performed:: TLH, bilateral Salpingectomy, cystoscopy Description of Surgical Findings:: normal tubes and ovaires bilaterally, anterior subserosal fibroid Dr. Benavides assisted in manipulation of tissue and camera. Surgeon: Nidhi Sandhu clinical reimbursement specialist: Amisha Benavides clinical reimbursement specialist: pavan hernández MS4 Type of Anesthesia: General and Local Special Medications: hemoblast Specimen's removed: uterus, cervix, bilateral tubes Drains: none Estimated Blood Loss (mL): 25cc Fluids Replaced: 800 Description of Procedure: Patient take to OR and prepped and draped in usual sterile fashion in dorsal lithotomy position with her arms tucked in a neurologically safe and neutral position. The uterus sounded to 9 cm. The delinator uterine manipulator was sutured into place at 3/9:00 position and herrera were placed. Attention was turned to the abdomen. All port sites were infiltrated with .25% marcaine before the incisions were made. The anterior abdominal wall was tented up with towel clamps and using a direct entry approach a 5 mm supraumbilical port was placed. Intraperitoneal placement was confirmed with the laparoscope and the pneumoperitoneum was created. The patient was placed in Trendelenburg and 5 mm right and left lower quadrant ports were placed under direct visualization. Air seal rapid insufflator was used. The bowel was swept away. Ovaries appeared normal. The mesosalpinx starting at fimbriated end were grasped, clamped, sealed and transected with the Ligasure. The round ligaments were divided. The anterior peritoneum was dissected down to create the bladder flap with blunt dissection and the LigaSure. The uterine arteries were isolated, clamped, sealed and cut. There was minimal back bleeding from the uterus. Straight bites on uterine artieries performed to drop them off the cuff. The manipulator was used as guide to create colpotomy using monopolar tip of ligasure. once specimen was removed attention was turned to vaginal portion. The specimen was handed off. The cuff was closed with interrupted 0-vicryl figure of 8 sutures. Cystoscopy was performed bilateral ureters were visualized with good efflux. bladder was intact. herrera replaced and sponge stick placed in vagina. The pneumoperitoneum was recreated and the cuff and pedicles were hemostatic. hemoblast was placed over cuff and pedicles. The skin incisions were closed with skin glue and 3-0 monocryl in the LLQ port site. The vaginal sweep was completed by me. Grafts/Implants Used: none Grafts/Implants Used: none Procedure Start Time: 10:48 Procedure Stop Time: 12:00 Complications none Admit VTE Documentation VTE Present on Admission: Yes VTE Mechan Device Prophylaxis: SCD's VTE Pharm Prophylaxis ordered?: Yes
[2024-01-03] MEDS: Lactated Ringers 1,000 ML 15 ML IV (12:00)
[2024-01-03] MEDS: Sugammadex Sodium 200 MG/2 ML VIAL IV (12:10)
--- NOTE | 2024-01-03 12:24 | PRE.ANES_ITS ---
ASA Classification* ASA Classification ASA Classification: 2 Assessment & Plan Anesthesia* Anesthesia Assessment Anesthesia Assessment: Discussed sedation and/or anesthesia options, risks, benefits, and alternatives with patient/parents/legal guardian/POA. Questions invited. The patient/parents/legal guardian/POA seems to understand and agrees to proceed with anesthesia plan. Reviewed the physical assessment, medical history, allergy history and patient home medications list prior to surgery/procedure/anesthetic and documented any changes. Performed airway and anesthesia risk assessments. Anesthesia Type Anesthesia Type: General History Source History Obtained from:: Patient and Chart Anesthesia Focused Assessment* Temperature: 97.9 F Pulse Rate: 68 Blood Pressure: 139/90 Respiratory Rate: 20 Pulse Ox: 99 Oxygen Delivery Method: Room Air Airway Assessment Mouth opens: >3 cm Mallampati Score: I Teeth Condition: Caps/Crowns (1 crown. It is tight.) Neck Range of motion (ROM): Full ROM Pertinent Findings ECHO Pertinent Findings:: Every 2020. Ejection fraction 65%. No significant valve disease Focused Labs Anesthesia Preop lab: CBC WBC 7.0 K/mm3 (4.4-11.0) 01/03/24 11:45 RBC 4.77 M/mm3 (4.2-5.4) 01/03/24 11:45 Hgb 12.4 g/dL (12.0-15.0) 01/03/24 11:45 Hct 39.6 % (37-47) 01/03/24 11:45 Plt Count 322 K/mm3 (150-450) 01/03/24 11:45 CHEMISTRY COAG Pre-Assessment Diagnosis/Proposed Procedure Planned Operative Procedure(s): STEPHANIE Laparoscopic, Salpingectomy Anesthesia History Anesthesia History - conference services director: Anesthesia History - conference services director Hx Hospitalization Yes: 09/19/2023 CEAS[facility]AN 12/11/23 10:12 DELIVERY Any Problems With Anesthesia No 12/11/23 10:12 Cholinesterase deficiency No 12/11/23 10:12 You/Your Family Experience No 12/11/23 10:12 fever (hyperthermia) with Relationship Recent Exposure to Contagious No 01/03/24 11:54 Disease Does patient have nerve No 12/11/23 10:12 stimulator Patient instructed to have device shut off --Does patient have Pacemaker No 01/03/24 11:54 or ICD? When Was Last Pacemaker Check QUESTION #4 FULL TEXT: You/Your Family Experience fever (hyperthermia) with Anesthesia Last Oral Intake Last Oral intake: Last Oral Intake NPO since 21:30 01/03/24 11:54 Meds taken in AM with sips of Yes 01/03/24 11:54 water? Meds patient instructed to take am of surgery PONV PONV - conference services director: PONV - conference services director Female Yes 12/11/23 10:12 HX of Motion Sickness Yes 12/11/23 10:12 HX of N/V After Surgery No 12/11/23 10:12 Non-Smoker Yes 12/11/23 10:12 Duration of Surgery greater No 12/11/23 10:12 than 60 minutes Number of Risk Factors 3 12/11/23 10:12 PONV Score Moderate Risk 12/11/23 10:12 Height & Weight Height & Weight: Anesthesia: Height & Weight Height 5 ft 5 in 01/03/24 11:54 Weight: 98 kg 01/03/24 11:54 Body Mass Index (BMI) 35.9 01/03/24 11:54 Respiratory Assessment Respiratory Assessment - conference services director: Respiratory Tract Infection Hx - conference services director Hx Respiratory Tract Infection No 12/11/23 10:12 STOP Sleep Apnea STOP Sleep Apnea - conference services director: STOP Sleep Apnea - conference services director Hx Hypertension No 12/11/23 10:12 Hx Sleep Apnea No 12/11/23 10:12 CPAP BIPAP Do you snore loudly (louder Yes 12/11/23 10:12 than talking or can be heard Do you often feel tired/ No 12/11/23 10:12 fatigued/ sleepy during daytime? Has anyone observed you stop No 12/11/23 10:12 breathing during sleep? STOP Results Negative 12/11/23 10:12 QUESTION #5 FULL TEXT : Do you snore loudly (louder than talking or can be heard through closed doors)? Tobacco Use History Tobacco Use History - conference services director: Tobacco Use History - conference services director Tobacco Use Smoking Status Never smoker 12/11/23 10:12 Hx Tobacco Use No 12/11/23 10:12 Years Smoking Packs Smoked per Day Smoking Cessation Date was within the last 15 years Hx Smoking Cessation Date Hx Smoking Cessation Counseling Hematologic Medial History Hematologic Hx - conference services director: Hematologic Medical Hx - chief counsel Hx of Blood Transfusion No 12/11/23 10:12 Hx of Transfusion in last 3 No 12/11/23 10:12 Months Date of Last Transfusion (if within last 3 months) Ever experience any problems No 12/11/23 10:12 with transfusion(s)? Specify any problems Hx of Preganancy in last 3 Yes 12/11/23 10:12 Months Nurse Filling Out Transfusion VCHRISTIN 12/11/23 10:12 & Questions: Date: 12/11/23 12/11/23 10:12 Time: 10:13 12/11/23 10:12 Patient unable to answer at this time (ie. confused, unrespo /Reproduction History /Reproductive History - conference services director: /Reproductive Hx- conference services director Hx Now No 12/11/23 10:12 Gestational Age (in weeks): EDC: Hx Hx Para Hx Section SAB No 12/11/23 10:12 Active Medications Active Medications: Current Medications Generic Name Dose Route Start Last Admin Trade Name Freq PRN Reason Stop Dose Admin Hydrocodone Bitart/Acetaminophen 1 - 2 tablet 01/03/24 12:00 Hydrocodone Bitartrate/Apap 5/325 Tablet PO Q6H PRN PRN Pain Score 1-10 Lactated Ringer's 1,000 mls @ 15 mls/hr 01/03/24 11:45 01/03/24 12:00 IV 01/09/24 01:04 15 mls/hr .Q48H GIOVANNA Administration Protocol Ondansetron HCl 4 mg 01/03/24 12:00 Ondansetron 4 Mg/2 Ml Vial IM X1 PRN NAUSEA PFSH Medical History History of steroid therapy Gastric reflux History of echocardiogram (spontaneous vaginal delivery) Maternal obesity syndrome in third trimester LGA (large for gestational age) fetus affecting mother, antepartum resulting from assisted reproductive technology in third trimester History of pre-term labor macrosomia Infertility Asthma Thyroid disorder Kidney disease Autoimmune disease Home Medications ?Medication ?Instructions ?Recorded ?Last Taken ?Type Lactobacillus acidophilus and 2 cap PO DAILY Check with primary 06/23/21 01/02/24 History rhamnosus 15 billion cell capsule doctor (Probiotic) montelukast 10 mg tablet 10 mg PO DAILY 09/19/23 01/02/24 History (Singulair) PNV 153-FA 400 mcg-om3 35 mg-dha 2 tab PO DAILY 12/11/23 01/02/24 History 25 mg-epa 5 mg-fish oil chew tablet ( Gummies) albuterol 90 mcg-budesonide 80 2 inh inhalation DAILY PRN 12/11/23 Unknown History mcg/actuation HFA aerosol inhaler shortness of breath cetirizine 10 mg tablet (24Hour 10 mg PO DAILY 12/11/23 01/02/24 History Allergy) elderberry fruit 350 mg capsule 350 mg PO DAILY 12/11/23 01/02/24 History levothyroxine 50 mcg capsule 50 mcg PO DAILY 01/03/24 01/03/24 History Allergy/AdvReac Type Severity Reaction Status Date / Time clavulanic acid (From Allergy Other Verified 01/03/24 11:52 Augmentin) Sulfa (Sulfonamide Allergy Hives Verified 01/03/24 11:52 Antibiotics) amoxicillin (From Augmentin) AdvReac Other Verified 01/03/24 11:52 Surgical History Hx of section Hx of eye surgery History of tonsillectomy and adenoidectomy Social History Smoking Status: Never smoker Review of Systems (Anesthesia) ROS Narrative System reviewed and no additional complaints, except as documented.
[2024-01-03 13:19] LABS: Internal QC Validated? YES +Cl - CLEAR BKGD; Pregnancy, Urine Negative Negative
--- NOTE | 2024-01-03 14:09 | PCM.OPRPT ---
Report of Operation Date of Procedure: 01/03/24 Pre-Operative Diagnosis: Desires sterilization Post-Operative Diagnosis: Same, Left paratubal cyst Surgery/Procedure Performed:: laparoscopic bilateral salpingectomy Description of Surgical Findings:: Normal ovaries, Left tube with simple paratubal cyst. right tube normal. Surgeon: Nidhi Sandhu Type of Anesthesia: General and Local Specimen's removed: bilateral fallopian tubes Drains: none Estimated Blood Loss (mL): <5cc Fluids Replaced: 800 Description of Procedure: After informed consent was obtained patient was taken to the operating room she was placed in supine position she was given anesthesia. She was then placed in the [facility] stirrups and she was prepped and draped in normal sterile fashion. Bladder was drained prior to the start of procedure. At this time attention was turned to the vaginal portion where weighted speculum placed at posterior fornix vagina single-tooth tenaculum was used to gently grasp the internal the cervix. uterus was gently sounded to approximately cm. Uterine manipulator was placed without difficulty. Legs then placed in parallel with the abdomen the tenaculum and the weighted speculum were removed. 2 towel clamps were placed at level of umbilicus. Marcaine was injected infraumbilical and a small incision was made. The 5 mm trocar was placed under direct visualization. CO2 gas was used to insufflate the intra-abdominal cavity. Upon inspection no gross abnormalities appreciated- the uterus tubes and ovaries appeared to be normal. At this time then the LLQ and RLQ ports were placed First Marcaine was injected and small incision was made a knife and the 5 mm trocars were placed. At this time then tubes were traced back to the fimbriated ends. Enseal was used to coagulate and ligate along mesosalpinx bilaterally until tubes removed completely. Good hemostasis was appreciated. At this time procedure was deemed complete successful. The gas was desufflated on from the intra-abdominal cavity. The trochars were removed. Skin was closed using 4-0 Monocryl in a subcutaneous fashion. Dermabond glue was placed. Instrument lap and needle counts were correct ?2. The uterine manipulator was removed. Vaginal sweep was performed it was negative. There were no complications anticipated normal postoperative course for this patient. Grafts/Implants Used: none Procedure Start Time: 13:42 Procedure Stop Time: 14:08 Complications none Admit VTE Documentation VTE Present on Admission: Yes VTE Mechan Device Prophylaxis: SCD's VTE Pharm Prophylaxis ordered?: No
--- NOTE | 2024-01-03 14:13 | PCM.DC ---
Discharge Instructions Diet Discharge Diet: No restrictions Activity May resume sexual activity in: 2 weeks Lifting Restrictions: 20-25 lbs Dressing / Incision Call your doctor if your incision/area has: Continuous Slow Oozing, Sudden Increased Bleeding, Increased Pain/ Swelling, Increased Redness, Foul Smelling Discharge and Swelling at the incision site Call your doctor if you observe: Fever of 101 or Higher, Inability to urinate, Inability to have a bowel movement, Using more than 1 pad per hour and Uncontrolled pain Additional Dressing/Incision Instructions:: You have skin glue over your incision sites, do not pick off. You may shower and let the soap and water run over the incision sites and dab dry. Follow Up Care Please Follow Up With: Nidhi Sandhu MD When: 1-2 weeks post OP if you need an appointment please call [phone] Test Results: Test results from this visit will be discussed in further detail at your follow-up appointment, if applicable. Discharge Plan Admission Attending Provider: Nidhi Sandhu Primary Care Provider: Olivia Montano Instructions Print Language: Portuguese Discharge Orders/Prescriptions Prescriptions: No Action Probiotic 15 billion cell Capsule 2 cap PO DAILY Rx Instructions: CAPSULES montelukast [Singulair] 10 mg tablet 10 mg PO DAILY cetirizine [24Hour Allergy] 10 mg tablet 10 mg PO DAILY Gummies 400 mcg-35 mg- 25 mg-5 mg tablet,chewable 2 tab PO DAILY elderberry fruit 350 mg capsule 350 mg PO DAILY albuterol-budesonide 90-80 mcg/actuation HFA aerosol inhaler 2 inh inhalation DAILY PRN (Reason: shortness of breath) levothyroxine 50 mcg capsule 50 mcg PO DAILY Disposition Disposition (needs filled in before D/C Order can be placed): Home, Self Care
--- NOTE | 2024-01-03 14:22 | PCM.POST.ANE ---
Anesthesia: Postop Eval I Current Vital Signs Temperature: 97.4 F Pulse Rate: 103 Blood Pressure: 136/92 Respiratory Rate: 20 Pulse Ox: 93 Oxygen Delivery Method: Room Air Assessment Airway patent: Yes Spontaneous unlabored respirations: Yes Mental status: Awake nausea: No Vomiting: No Anesthesia Complication: No Fluid Hydration Crystalloid volume administer (ml): 800 Total IV fluid infused: 800 Progress Note Anesthesia document: Postop Eval 1 completed: Yes
--- NOTE | 2024-01-03 16:09 | POSTOPAN2_ITS ---
Anesthesia Postop Eval I Sum Postop Eval Completion status Anesthesia document: Postop Eval 1 completed: Yes Anesthesia Postop Eval I Summary Anesthesia Postop Eval I Summary: Anesthesia Postop Eval I: Assessment Summary Airway patent Yes 01/03/24 14:23 DOUGH [email or web address] Spontaneous unlabored Yes 01/03/24 14:23 DOUGH [email or web address] respirations Mental status Awake 01/03/24 14:23 DOUGH [email or web address] nausea No 01/03/24 14:23 DOUGH [email or web address].JDEF Vomiting No 01/03/24 14:23 DOUGH [email or web address] Anesthesia Postop Eval I: Fluid Summary Crystalloid volume administer 800 01/03/24 14:23 DOUGH [email or web address].JDEF (ml) Colloids volume administered ( ml) Blood Product volume administered (ml) Total IV fluid infused 800 01/03/24 14:23 DOUGH [email or web address].JDEF Anesthesia Postop Eval I: Summary Notes Anesthesia Complication No 01/03/24 14:23 DOUGH [email or web address].JDEF Anesthesia Complication Comment: Post-operative progress note Anesthesia: Postop Eval II Evaluation Mental status: Awake and Calm Pain Level: 1 nausea: No Vomiting: No Complications Anesthesia Complication: No
--- NOTE | 2024-01-03 16:09 | PCM.POSTANE2 ---
Anesthesia Postop Eval I Sum Postop Eval Completion status Anesthesia document: Postop Eval 1 completed: Yes Anesthesia Postop Eval I Summary Anesthesia Postop Eval I Summary: Anesthesia Postop Eval I: Assessment Summary Airway patent Yes 01/03/24 14:23 TAXATION CONSULTANT.JDEF Spontaneous unlabored Yes 01/03/24 14:23 TAXATION CONSULTANT.JDEF respirations Mental status Awake 01/03/24 14:23 TAXATION CONSULTANT.JDEF nausea No 01/03/24 14:23 TAXATION CONSULTANT.JDEF Vomiting No 01/03/24 14:23 TAXATION CONSULTANT.JDEF Anesthesia Postop Eval I: Fluid Summary Crystalloid volume administer 800 01/03/24 14:23 TAXATION CONSULTANT.JDEF (ml) Colloids volume administered ( ml) Blood Product volume administered (ml) Total IV fluid infused 800 01/03/24 14:23 TAXATION CONSULTANT.JDEF Anesthesia Postop Eval I: Summary Notes Anesthesia Complication No 01/03/24 14:23 TAXATION CONSULTANT.JDEF Anesthesia Complication Comment: Post-operative progress note Anesthesia: Postop Eval II Evaluation Mental status: Awake and Calm Pain Level: 1 nausea: No Vomiting: No Complications Anesthesia Complication: No
--- NOTE | 2024-01-09 14:27 | HP.PCM.OB_ITS ---
History and Physical Date of Admission: 01/03/24 Pre-Op History and Physical HPI: The patient is a 33 year old female presenting for pre-operative visit. She is scheduled for laparoscopic bilateral salpignectomy , for desires sterilization on 01/03/24. Procedure discussed along with risks, benefits and complications. Other alternatives discussed for management. Consent form signed? Yes. PAST MEDICAL HISTORY PAST MEDICAL HISTORY Diagnosis Date ? DONNA (acute kidney injury) (HCC) 04/27/2020 ? Anemia during in third trimester 04/05/2021 ? Asthma ? Genetic screening 2020 genetic carrier screening panel done, scanned in, neg ? Goiter, nodular ? H/O shoulder dystocia in prior , currently 06/23/2021 ? Almaz's thyroiditis ? Hypothyroidism during in second trimester ? Ovarian hyperstimulation syndrome 04/2020 ? Overweight ? PCOS (polycystic ovarian syndrome) ? Pericardial effusion 04/2020 ? Thyroid function test abnormal PAST SURGICAL HISTORY PAST SURGICAL HISTORY Procedure Laterality Date ? ADENOIDECTOMY HX ? DELIVERY ONLY 09/19/2023 ? EMBRYO FROZEN TRANSFER 02/05/2023 ? HSG ? HYSTEROSCOPY, DIAGNOSTIC (SEPARATE ? PARACENTESIS ovarian hyperstimulation ? TONSILLECTOMY HX CURRENT MEDICATIONS Current Outpatient Medications Medication Sig Dispense Refill ? levothyroxine (SYNTHROID) 75 mcg tablet Take 1 tablet by mouth once daily. 90 tablet 0 ? Lactobac no.41/Bifidobact no.7 (PROBIOTIC-10 ORAL) 1 CAP(S) ORALLY ONCE A DAY ? elderberry fruit (ELDERBERRY ORAL) 1 gummie Orally once a day ? cetirizine (ZYRTEC) 10 mg tablet Take 1 tablet by mouth once daily. ? montelukast (SINGULAIR) 10 mg tablet Take 10 mg by mouth once daily. ? albuterol HFA (PROAIR HFA) 90 mcg/actuation inhaler Inhale 2 Puffs as instructed every 6 hours as needed. 1 Inhaler 1 ? PNV no.95/ferrous fum/folic ac ( ORAL) Take 1 tablet by mouth once daily. No current facility-administered medications for this visit. ALLERGIES: Augmentin [Amoxicillin-Pot Clavulanate] and Sulfa (Sulfonamide An tibiotics) PERSONAL HISTORY: SOCIAL HISTORY Social History Tobacco Use ? Smoking status: Never Passive exposure: Never ? Smokeless tobacco: Never Vaping Use ? Vaping status: Never Used Substance Use Topics ? Alcohol use: No ? Drug use: No FAMILY HISTORY: FAMILY HISTORY FAMILY HISTORY Problem Relation Age of Onset ? No Known Problems Mother ? Allergies Father ? Cancer Father ? Goiter Father ? No Known Problems Brother ? Hypertension Maternal Grandmother ? Osteoporosis Maternal Grandmother ? Hypertension Maternal Grandfather ? No Known Problems Paternal Grandmother ? COPD Paternal Grandfather ? No Known Problems Son REVIEW OF SYMPTOMS: negative except as noted above PHYSICAL EXAMINATION: VITALS: Blood pressure 130/80, pulse 92, height 165.1 cm (5' 5), weight 94.3 kg (208 lb), last menstrual period 01/21/2023, SpO2 99%, not currently . GENERAL: The patient is well nourished, well hydrated in no acute distress. , The patient is oriented to time, place, and person. NECK: full range of motion WET PREP: Not indicated IMPRESSION: 33yo desires sterilization PLAN: laparoscopic bilateral salpingectomy Pt has been counseled on risks/benefits and alternatives of surgery including but not limited to anesthesia, bleeding, infection, injury to pelvic structures including bowel, bladder, ureters and vessels. Pt wishes to proceed with surgery at this time. Pre and post op instructions reviewed I have reviewed and updated past medical and surgical history, medications and allergies Nidhi Morrison MD Note shared with patient
== END 2024-01-03 16:14 | disposition home or self-care (01) ==
LOC: SDC 11:33 → AC 11:34
PROVIDERS: Anesthesiology; PCP Family Medicine; Referring Provider Obstetrics & Gynecology; Visit Provider Obstetrics & Gynecology
PROC: (CPT 58661; principal; 2024-01-03 12:45)
DX: Z30.2 Encounter for sterilization (principal); N83.8 Other noninflammatory disorders of ovary, fallopian tube and broad ligament; E06.3 Autoimmune thyroiditis; Z87.890 Personal history of sex reassignment
CPT/HCPCS: 58661; 00840; 81025; 85027; 88302; J7120; C1760; J2405